=== PATIENT | female | born 1975 | race Caucasian/White ===

== ENCOUNTER 2016-05-16 08:31 | Day surgery (SDC) | payer OTHER ==
[2016-05-16] VITALS (12 sets, daily range): BP systolic 130–174; BP diastolic 83–106; PULSE 65–87; RESP 10–20; O2SAT 94–98
[~2016-05-16] VITALS: Ht 170.2 cm; Wt 99.6 kg
[~2016-05-16 08:31] MED LIST: CeFAZolin Inj 2 GM in IV Premix 1 EACH IV ONE; OMEP20TA24 PO; ONDA-54 PO; OXYC1TAB24 PO
[2016-05-16] MEDS ORDERED: Propofol 10,000 mCg/mL 20 mL Inj ONE (08:32)
[2016-05-16] MEDS ORDERED: Dexamethasone 4 mg/mL Inj ONE (08:32)
[2016-05-16] MEDS ORDERED: Lidocaine PF 1% 30 mL Inj ONE (08:32)
[2016-05-16] MEDS ORDERED: fentaNYL-PF 50 mCg/mL 2 mL Inj ONE (08:32)
[2016-05-16] MEDS ORDERED: fentaNYL-PF 50 mCg/mL 2 mL Inj IVPUSH PRN (09:30)
[2016-05-16] MEDS ORDERED: Ondansetron 2 mg/mL 2 mL Inj IVPUSH ONE (09:30)
--- NOTE | 2016-05-16 09:30 | DRSVH ---
PROCEDURE: X-RAY KUB ([id number]) INDICATIONS: RIGHT STONE TECHNIQUE: One view of the abdomen acquired. COMPARISON: [facility], CR, XR ABD AP 1VW, 05/01/2016, 9:11. FINDINGS: Surgical changes and devices: None. Bowel: Bowel gas pattern is normal. Soft tissues: The previously seen right ureteral calculus has migrated into the mid/distal right uret er. Visualized solid organ contours appear normal in size. Bones: No suspicious bony lesions. IMPRESSION: Distal migration of right ureteral calculus. Dictated by: Gilberto Larson M.D. on 05/16/2016 at 9:28 Approved by: Gilberto Larson M.D. on 05/16/2016 at 9:29
[2016-05-16] MEDS ORDERED: Lactated Ringer's 1,000 ML IV SCH (09:49)
[2016-05-16] MEDS ORDERED: Lactated Ringer's 500 ML IV PRN (09:49)
--- NOTE | 2016-05-16 09:49 | PCM.HPANE ---
Patient Data Date of Service: May 16, 2016 Surgeon Admitting Provider: Attending Provider:Jennifer Devlin MD Primary Care Physician:Erasto Siddiqui MD Other Provider:Tavia Song Anesthesia Reason for Visit Right Upj Stone Ht/WT & BMI Height (Feet): 5 Height (Inches): 7 Weight (Kilograms): 99.6 Body Mass Index 34.00 Allergies Coded Allergies: droperidol (Verified Allergy, Mild, muscular tetany, 05/15/16) prochlorperazine (Verified Allergy, Unknown, muscular tetany, 05/15/16) Past Anesthesia History Anesthesia History: Positive for:: Anesthesia Reactions (aspiration during ESWL (when in water)), Denies:: Fam Anesthesia Reaction Diabetes History Hx Diabetes?: No MRSA MRSA: No Medications Hypertension Medication: No Home Meds Incl Beta Placido: No Reported Medications oxyCODONE-Acetaminophen 5-325 mg 1 Each Tablet1-2 Tab PO Q4H PRN For Pain Ref 0 05/15/16 Ondansetron 8 Mg Tablet8 Mg PO Q8H PRN For Nausea 05/15/16 Omeprazole Magnesium (Prilosec Otc)20 Mg Tablet.dr40 Mg PO DAILY #1 PKG Ref 0 05/15/16 History History of ENT Problems?: No HEENT History: Denies:: Dysphagia Hearing Problem Sinus Problem TMJ Teeth Condition: Missing Teeth Broken Teeth Hx of Heart Problems?: No Cardiovascular History: Denies:: AICD Abdominal Aortic Aneurism Atrial Fibrillation Cardiac Surgery Chest Pain Edema Heart Murmur Hypertension (monitoring B/P no meds at this time) Irregular Heartbeat Pacemaker Peripheral Vascular Hx of Respiratory Problem?: No Respiratory History: Denies:: Asthma COPD Emphysema Oxygen Administration Pneumonia Pulmonary Embolism Tuberculosis Use of C-PAP Machine Use of Inhalers / NEBS Hx Neurologic Problems?: No Neurological History: Denies:: CVA Dizziness Headaches Multiple Sclerosis Parkinson's Disease Seizures TIA Hx of GI Problems?: Yes Gastrointestinal History: Positive for:: Gastroesphageal Reflux Heartburn Denies:: Cirrhosis Gall Bladder Disease Gastrointestinal Bleeding Hepatitis Hiatal Hernia Liver Disease Rectal Bleeding Hx of Problems?: Yes Genitourinary History: Positive for:: Kidney Stones (right kidney, prior stones and ESWL- last treated approx 6mos ago) Denies:: Urinary Tract Infection Female Hx: Denies:: Currently Problems with Breasts? Skin History: Denies:: History Skin Disorders? Pressure Ulcers Hx Musculoskeletal Problems?: No Musculoskeletal History: Denies:: Fibromyalgia Joint Replacement Musculoskeletal Trauma Osteoarthritis Rheumatoid Arthritis Systemic Lupus Hx of Psycho/Social Problems?: Yes (on no meds) Psycho Social History: Positive for:: Anxiety Hx Depression Denies:: Bipolar Disorder Hx Surgeries?: Yes ( 2 LITHOS AND EXPL KIDNEY AND R KNEE SURGERY, cynthia lasik, c section) Hx Any Other Health Problems?: Yes Other History: Positive for:: Hospitalization Denies:: Cancer Thyroid Disease History Blood Transfusions: Positive for:: Accept Blood Products? Denies:: Blood Transfuse Reaction Blood Transfusions Hx Diabetes: No Hx Alcohol Use: NoHx Substance Use: NoHave You Smoked inLast 12 mo: No Stop/Bang S-Snoring: Do You Snore Loudly: No T-Tired: feel tired, fatigued: No O-Obsered: Observed not breath: No P-Blood Pressure: treated: Yes B- Body Mass Index > 35 kg/m2: No A- Age over 50: No N- Neck Large Circumference: No G- Gender Male: No MARV Total Score: 1 MARV Risk Assessment: Low Risk, <3 Yes Risk Assessment Category Category 1A: Patient has history of documented sleep apnea, and HAS NOT received any narcotic, sedative or anesthesia administration during this stay. Category 1B: Patient has history of documented sleep apnea, and HAS received any narcotic , sedative or anesthesia administration during this stay Category 2: Patient has SUSPECTED Obstructive Sleep Apnea, and HAS received any narcotic , sedative or anesthesia administration during this stay. Category 3: Patient has SUSPECTED Obstructive Sleep Apnea and HAS NOT received narcotic, sedative or anesthesia administration during this stay. Category 4: Outpatient in Procedural Areas with known sleep apnea or who screen positive for High Risk via the STOP/BANG questionnaire. Exam Exam Vital Signs Vital Signs Date Time Temp Pulse Resp B/P Pulse Ox O2 Delivery O2 Flow Rate FiO2 05/16/16 09:33 37.0 71 20 146/98 97 Room Air General Appearance: Alert, Oriented X3, Cooperative, Mild Distress (pain and nausea from kidney stone) HEENT/AIRWAY: MP 2 Lungs: Normal Air Movement Heart: Exam Unremarkable Plan Impression Patient chart reviewed, patient interviewed and anesthestic plan with risks, benefits, and alternatives discussed, and informed consent obtained. NPO Status: 0530 WATER ASA Physical Status: ASA2 Mod Systemic Disease Anesthetic Plan: GA Bene/Risks/Altern/Consents: Yes HP Complete Prior to Induction: Yes Andrew Rudolph MD May 16, 2016 09:49
[2016-05-16] MEDS ORDERED: HYDROmorphone 1 mg/mL Inj IVPUSH PRN (09:50)
[2016-05-16] MEDS ORDERED: Atropine 0.4 mg/mL Inj IVPUSH PRN (09:50)
[2016-05-16] MEDS ORDERED: MetoCLOpramide 5 mg/mL 2 mL Inj IVPUSH PRN (09:50)
[2016-05-16] MEDS ORDERED: Dexamethasone 4 mg/mL Inj IVPUSH PRN (09:50)
[2016-05-16] MEDS ORDERED: Labetalol 5 mg/mL 4 mL Inj IV PRN (09:50)
[2016-05-16] MEDS ORDERED: Phenylephrine 10,000 mCg/mL Inj IVPUSH PRN (09:50)
[2016-05-16] MEDS ORDERED: Ondansetron 2 mg/mL 2 mL Inj IVPUSH PRN (09:50)
[2016-05-16] MEDS ORDERED: EPHEDrine Sulfate 50 mg/mL Inj IVPUSH PRN (09:50)
[2016-05-16] MEDS: Lactated Ringer's 1,000 ML IV SCH ×2 (09:51→10:50)
[2016-05-16] MEDS: fentaNYL-PF 50 mCg/mL 2 mL Inj IVPUSH PRN ×2 (09:52→10:24)
[2016-05-16] MEDS ORDERED: HYDROcodone-APAP 5-325 mg Tablet PO PRN (11:20)
[2016-05-16] MEDS ORDERED: HYDROmorphone 0.5 mg/0.5 mL iSecure Syringe ONE (11:56)
--- NOTE | 2016-05-16 11:57 | PCM.ANEP1 ---
Post Anesthesia Phase 1 PACU Phase 1 Assessment Date of Service: May 16, 2016 Vital Signs Vital Signs Date Time Temp Pulse Resp B/P Pulse Ox O2 Delivery O2 Flow Rate FiO2 05/16/16 11:50 81 11 152/99 98 Nasal Cannula 4 05/16/16 11:48 36.3 155/95 05/16/16 09:33 37.0 71 20 146/98 97 Room Air Anesthetic Administered: GA Level of Alertness: Awake, talking MAGDALENO's with Equal Strength: Yes Pain: No Nausea or Vomiting: Yes Oxygen Delivery: Nasal Cannula Lungs: Normal Air Movement Andrew Rudolph MD May 16, 2016 11:57
--- NOTE | 2016-05-16 12:28 | PCM.ANEP2 ---
Post Anesthesia Evaluation ASA/CMS Post Anesthesia Date of Service: May 16, 2016 VS in Patient's Normal Range?: Yes Resp Stable; Airway Patent?: Yes CV Function & Hydration Stable: Yes Mental Status Recovered?: Yes Pain control Satisfactory?: Yes N/V Control Satisfactory?: Yes Andrew Rudolph MD May 16, 2016 12:28
--- NOTE | 2016-05-17 00:46 | OP ---
[address] [address] OPERATIVE REPORT PATIENT: LORNA LAUREANO : 1975 MR#: [id number] ADMIT: 05/16/2016 JOB ID: [id number] DATE OF SURGERY: 05/16/2016 PREOPERATIVE DIAGNOSIS(ES): Right ureteral stone. POSTOPERATIVE DIAGNOSIS(ES): Right ureteral stone. PROCEDURE PERFORMED: 1. Right extracorporeal shockwave lithotripsy. 2. Cystoscopy and right ureteral stent placement. SURGEON: Jennifer Devlin MD. FISH HEADER: None. FINDINGS: 1. Good hazing of the right ureteral stone after shockwave lithotripsy. 2. Stone debris emanating from the right ureteral orifice on cystoscopy. ANESTHESIA: General. ESTIMATED BLOOD LOSS: None. DRAINS: A 6 x 26 right double-J ureteral stent with string attached. COMPLICATIONS: None. CONDITION: Stable. INDICATION FOR PROCEDURE: The patient is a 41-year-old woman with a right ureteral stone. She now presents for shockwave lithotripsy. DESCRIPTION OF PROCEDURE: After informed consent was obtained, the patient was taken to the operating room. Time-out was performed, identifying correct patient, surgical site, and procedure. General anesthesia was smoothly induced. She was placed in the supine position and all pressure points were identified and appropriately padded. The lithotripter device was positioned over the patient's body and the stone was localized within the cross hairs. Note should be made that the lithotripter device was shifted from her posterior right flank to anterior as this provided views of the stone in two planes. Shock wave lithotripsy then commenced with a total of 2500 shocks delivered at a power of 5. While there was good hazing of the stone, given the patient's pain and nausea preprocedurally, it was decided to place a right ureteral stent. The patient's genitals were then prepped and draped in usual sterile fashion. A 22-[place] rigid cystoscope was applied to the patient's urethra and advanced to the bladder. Bladder was drained. The bladder was inspected. There was stone debris emanating from the right ureteral orifice. It was cannulated with a Sensor Tip wire and advanced to the renal pelvis as seen under fluoroscopy. A 6 x 26 double-J ureteral stent was loaded over the wire and advanced to the renal pelvis as seen under fluoroscopy. The wire was then removed, leaving a nice coil in the patient's bladder. The bladder was then drained. The strings were adhered to the patient's inner thigh with Mastisol and Tegaderm. She was reversed from general anesthesia and taken to PACU in good and stable condition. STEVIE
== END 2016-05-16 23:59 | disposition home or self-care (01) ==
LOC: SAS 08:31
PROVIDERS: ATTEND Urology
DX: N20.1 Calculus of ureter (principal); R10.9 Unspecified abdominal pain; K21.9 Gastro-esophageal reflux disease without esophagitis; F41.9 Anxiety disorder, unspecified; F32.9 Major depressive disorder, single episode, unspecified
CPT/HCPCS: 50590; 52332; 74000; C2617; J0690; J1100; J1170; J2175; J2250; J2405; J2765; J3010; J7120